=== PATIENT | male | born 1940 | race Caucasian/White ===

== ENCOUNTER 2016-11-30 07:26 | Day surgery (SDC) | payer MEDICARE ==
[2016-11-30] MEDS ORDERED: VERSED 5 MG/5 ML IV ONE (08:00)
[2016-11-30] MEDS ORDERED: DEMEROL 50 MG IJ ONE (08:00)
[2016-11-30] MEDS ORDERED: Sodium Chloride 0.9% 1000 ML 1,000 ML IV SCH (08:30)
--- NOTE | 2016-11-30 11:33 | HP ---
DATE: 12/01/15 ADMISSION DIAGNOSIS: 1. 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 ANTICIPATED PROCEDURE: 1. Colonoscopy. PAST MEDICAL HISTORY: ALLERGIES: NONE. CURRENT MEDICATIONS: Zyloprim, Norvasc, Benicar. SURGERIES: Cataracts, left elbow and wrist, low anterior resection. SOCIAL HISTORY: Negative. FAMILY HISTORY: Negative. REVIEW OF SYSTEMS: Hypertension. PHYSICAL EXAMINATION: Vital signs normal. CHEST: Clear. COR: Regular. ABDOMEN: Satisfactory. IMPRESSION: 1. FOLLOW-UP OF LOW ANTERIOR RESECTION VERY LARGE SESSILE ATYPICAL POLYP. PLAN: Colonoscopy.
[2016-11-30 12:33] VITALS: BP 133/75; PULSE 55; O2SAT 93
--- NOTE | 2016-11-30 13:22 | OP ---
SURGERY DATE/TIME: 11/30/2016 1006 PREOPERATIVE DIAGNOSIS: Follow up for polyps. POSTOPERATIVE DIAGNOSIS: At least six rectal polyps. PROCEDURES 1) Colonoscopy complete to cecum. 2) Hot polypectomy of six rectal polyps submitted in one container. SURGEON: Chucho Osorio M.D. ANESTHESIA: IV sedation. COMPLICATIONS: None. CONDITION: Stable. INDICATION: A 76 year old requiring evaluation. He had low anterior for a very large villous adenoma. He subsequently presents for polyp control. DESCRIPTION OF PROCEDURE: He was taken to the endoscopy suite. Left lateral decubitus position. After suitable sedation. The scope advanced to the cecum. The base of the cecum, ileocecal valve, ascending, hepatic, transverse, splenic, descending satisfactory. Residual sigmoid satisfactory. Below the anastomosis in the rectum at least six rectal polyps were taken with hot forceps. PLAN: We will check one more time in one year. I suspect he can move out to three years at that time but he certainly had generous rectal polyps.
== END 2016-11-30 12:10 | disposition home or self-care (01) ==
LOC: SDC 07:26
PROVIDERS: ATTEND Surgery
PROC: 0DBP8ZX Excision of Rectum, Via Natural or Artificial Opening Endoscopic, Diagnostic (ICD-10-PCS; principal; 2016-11-30)
DX: K62.1 Rectal polyp (principal); Z90.49 Acquired absence of other specified parts of digestive tract; I10 Essential (primary) hypertension
CPT/HCPCS: 36415; 88305; J2175; J2250; L0625

== ENCOUNTER 2019-04-08 12:14 | Emergency (ER) | payer MEDICARE, OTHER ==
[2019-04-08] MEDS ORDERED: TORAdol 30 mg Injection IV ONE (12:42)
[2019-04-08] MEDS ORDERED: Zofran 4 MG/2 ML VIAL IV ONE (12:42)
[2019-04-08] MEDS ORDERED: Sodium Chloride 0.9% 1000 ML 1,000 ML IV STA (12:42)
--- NOTE | 2019-04-08 13:00 | ERPHSYRPT ---
- History of Present Illness Time Seen by Provider: 04/08/19 12:45 Source: patient Exam Limitations: no limitations Patient Subjective Stated Complaint: Pt began having blood in the urine about 4 days ago, N&V (dry heaves), pain in left quadrants of abdomen Triage Nursing Assessment: Pt presents to the ER with pain in his left sided quadrants, denies radiation, denies flank pain, bowel sounds heard in all 4 quadrants, hypertensive, pulses normal, rates pain 5/10, dry heaves, last intake last night Physician History: Left LQ pain started today; 4 or 5 days blood in urine. No history of kidney stones, urinary tract infections or prostate problems. Had prior colon resection; otherwise in good health. No fever, chills. Had nausea this morning. Allergies/Adverse Reactions: No Known Drug Allergies Allergy (Verified 04/08/19 12:29) Home Medications: Allopurinol 100 mg [Zyloprim 100 mg] 100 mg PO DAILY 03/11/15 [History] Amlodipine Besylate 10 mg [Norvasc 10 MG] 10 mg PO DAILY 03/11/15 [History] Olmesartan Medoxomil [Benicar] 40 mg PO DAILY 03/11/15 [History] Docusate Sodium [Colace] 100 mg PO DAILY 11/30/16 [History] Hx Influenza Vaccination/Date Given: Yes (2013) Hx Pneumococcal Vaccination/Date Given: No - Past Medical History Pertinent Past Medical History: Yes Neurological History: No Pertinent History ENT History: Cataracts Cardiac History: Hypertension Respiratory History: No Pertinent History Endocrine Medical History: No Pertinent History Musculoskeletal History: Fractures GI Medical History: No Pertinent History, Other History: No Pertinent History Psycho-Social History: No Pertinent History Male Reproductive Disorders: No Pertinent History Other Medical History: Gout , tubular followup from colon resection in apr. - Past Surgical History Past Surgical History: Yes Neuro Surgical History: No Pertinent History Cardiac: No Pertinent History Respiratory: No Pertinent History Gastrointestinal: No Pertinent History, Colon Resection Genitourinary: No Pertinent History Musculoskeletal: Orthopedic Surgery Male Surgical History: No Pertinent History Other Surgical History: bilateral cataracts. left arm fx repair as child. nerves rerouted - Social History Smoking Status: Never smoker Exposure to second hand smoke: No Drug Use: none Patient Lives Alone: No - Review of Systems Constitutional: No Symptoms Respiratory: No Symptoms Cardiac: No Symptoms Genitourinary Symptoms: Hematuria (karen blood) All Other Systems: Reviewed and Negative - Nursing Vital Signs Nursing Vital Signs: Initial Vital Signs Temperature 97.8 F 04/08/19 12:19 Pulse Rate 61 04/08/19 12:19 Blood Pressure 165/78 04/08/19 12:19 O2 Sat by Pulse Oximetry 94 L 04/08/19 12:19 Pain Scale Pain Intensity 0 - Physical Exam General Appearance: no apparent distress Eye Exam: PERRL/EOMI Ears, Nose, Throat Exam: normal ENT inspection, pharynx normal Neck Exam: normal inspection, full range of motion Respiratory Exam: normal breath sounds, lungs clear Cardiovascular Exam: regular rate/rhythm, normal heart sounds, normal peripheral pulses Gastrointestinal/Abdomen Exam: soft, normal bowel sounds, No tenderness, No distention Extremity Exam: normal inspection, normal range of motion SpO2 Interpretation: normal SpO2: 94 O2 Delivery: Room Air - Course Nursing assessment & vital signs reviewed: Yes - CT Exams Abdomen/Pelvis CT Interpretation: Other (mild hydronepohrosis L kidney; distended urinary bladder, enlarged prostate - R/O outlet obstruction.) Ordered Tests: Medication Summary Discontinued Medications Generic Name Dose Route Start Last Admin Trade Name Freq PRN Reason Stop Dose Admin Sodium Chloride 1,000 mls @ 999 mls/hr 04/08/19 12:42 04/08/19 14:32 Sodium Chloride 0.9% 1000 Ml IV 04/08/19 13:42 Infused .Q1H1M STA Infusion Sodium Chloride Confirm 04/08/19 13:18 Sodium Chloride 0.9% 1000 Ml Administered 04/08/19 13:19 Dose 1,000 mls @ ud .ROUTE .STK-MED ONE Ketorolac Tromethamine 15 mg 04/08/19 12:42 04/08/19 13:19 Toradol 30 Mg Injection IV 04/08/19 12:43 15 mg STAT ONE Administration Ketorolac Tromethamine Confirm 04/08/19 13:18 Toradol 30 Mg Injection Administered 04/08/19 13:19 Dose 30 mg .ROUTE .STK-MED ONE Ondansetron HCl 4 mg 04/08/19 12:42 04/08/19 13:19 Zofran 4 Mg/2 Ml Vial IV 04/08/19 12:43 4 mg STAT ONE Administration Ondansetron HCl Confirm 04/08/19 13:18 Zofran 4 Mg/2 Ml Vial Administered 04/08/19 13:19 Dose 4 mg .ROUTE .STK-MED ONE Lab/Rad Data: Laboratory Result Diagrams 04/08/19 12:57 04/08/19 12:57 Laboratory Results 04/08/19 04/08/19 04/08/19 Range/Units 16:55 12:57 12:57 WBC 9.8 (4.0-10.5) K/mm3 RBC 5.10 (4.1-5.6) M/mm3 Hgb 15.2 (12.5-18.0) gm/dl Hct 45.4 (42-50) % MCV 89.0 (78-100) fl MCH 29.8 (26-32) pg MCHC 33.5 (32-36) g/dl RDW 14.9 H (11.5-14.0) % Plt Count 146 L (150-450) K/mm3 MPV 10.4 H (6-9.5) fl Gran % 81.6 H (36.0-66.0) % Eos # (Auto) 0.06 (0-0.5) Absolute Lymphs (auto) 0.97 L (1.0-4.6) Absolute Monos (auto) 0.74 (0.0-1.3) Lymphocytes % 9.9 L (24.0-44.0) % Monocytes % 7.5 (0.0-12.0) % Eosinophils % 0.6 (0.00-5.0) % Basophils % 0.4 (0.0-0.4) % Absolute Granulocytes 8.02 H (1.4-6.9) Basophils # 0.04 (0-0.4) Sodium 143 (137-145) mmol/L Potassium 3.8 (3.5-5.1) mmol/L Chloride 109 H (98-107) mmol/L Carbon Dioxide 24 (22-30) mmol/L Anion Gap 13.5 (5-15) MEQ/L BUN 32 H (9-20) mg/dL Creatinine 1.53 H (0.66-1.25) mg/dL Estimated GFR 47.3 ML/MIN Glucose 126 H (74-106) mg/dL Calcium 9.4 (8.4-10.2) mg/dL Total Bilirubin 0.60 (0.2-1.3) mg/dL AST 22 (17-59) U/L ALT 15 (0-50) U/L Alkaline Phosphatase 85 (38-126) U/L Serum Total Protein 7.8 (6.3-8.2) g/dL Albumin 4.1 (3.5-5.0) g/dL Urine Color RED (YELLOW) Urine Appearance CLOUDY (CLEAR) Urine pH 6.0 (5-6) Ur Specific Dickens 1.012 (1.005-1.025) Urine Protein 100 (Negative) Urine Ketones NEGATIVE (NEGATIVE) Urine Blood MODERATE (0-5) Hakan/ul Urine Nitrite NEGATIVE (NEGATIVE) Urine Bilirubin NEGATIVE (NEGATIVE) Urine Urobilinogen NEGATIVE (0-1) mg/dL Ur Leukocyte Esterase NEGATIVE (NEGATIVE) Urine WBC (Auto) 6-10 (0-5) /HPF Urine RBC (Auto) >101 (0-2) /HPF U Epithel Cells (Auto) NONE (FEW) /HPF Urine Bacteria (Auto) PACKED (NEGATIVE) /HPF Urine Mucus (Auto) SLIGHT (NEGATIVE) /HPF Urine Culture Reflexed YES (NO) Urine Glucose 50 (NEGATIVE) mg/dL - Progress Progress: improved Progress Note: 04/08/19 17:16 Patient voided in ER - gross hematuria. Discussed with Dr. Gu/Urologist - call his office in the morning and will get worked in during the week. If he has urinary retention meanwhile - ER and will be admitted to Dr. Gu. - Departure Departure Disposition: Home Clinical Impression: Hematuria Qualifiers: Hematuria type: gross Qualified Code(s): R31.0 - Gross hematuria Condition: Stable Critical Care Time: No Referrals: TERESE GAYLE MD [Primary Care Provider] - Instructions: Blood in the Urine (Hematuria) in Adults Additional Instructions: Follow up with Dr. Gu, Urologist in [place]; call his office [phone]. They will work you in to be seen this week - be sure to tell them that Dr. Baum spoke to Dr. Gu. If you have urinary retention meanwhile, go to the ER - if it is at [facility] they will admit you for Dr. Gu.
[2019-04-08 13:05] LABS: BASOPHIL % 0.4 % (0.0-0.4); Basophil (Absolute #) 0.04 (0-0.4); Eosinophil % 0.6 % (0.00-5.0); Eosinophil (Absolute #) 0.06 (0-0.5); Granulocyte Absolute (ANC) 8.02 (1.4-6.9); Granulocytes % 81.6 % (36.0-66.0); Hematocrit 45.4 % (42-50); Hemoglobin 15.2 gm/dl (12.5-18.0); Lymphocyte (Absolute #) 0.97 (1.0-4.6); Lymphocytes % 9.9 % (24.0-44.0); Mean Corpuscular Hemoglobin 29.8 pg (26-32); Mean Corpuscular Hgb Concent. 33.5 g/dl (32-36); Mean Platelet Volume 10.4 fl (6-9.5); Monocyte (Absolute #) 0.74 (0.0-1.3); Monocytes % 7.5 % (0.0-12.0); Platelet Count 146 K/mm3 (150-450); Red Cell Distribution Width 14.9 % (11.5-14.0); White Blood Count 9.8 K/mm3 (4.0-10.5)
[2019-04-08 13:12] LABS: ALBUMIN 4.1 g/dL (3.5-5.0); ANION GAP 13.5 MEQ/L (5-15); BILIRUBIN,TOTAL 0.6 mg/dL (0.2-1.3); Calcium 9.4 mg/dL (8.4-10.2); Creatinine 1 1.53 mg/dL (0.66-1.25); Potassium 3.8 mmol/L (3.5-5.1); Total Protein 7.8 g/dL (6.3-8.2)
[2019-04-08] MEDS ORDERED: Sodium Chloride 0.9% 1000 ML 1,000 ML ONE (13:18)
[2019-04-08] MEDS ORDERED: Zofran 4 MG/2 ML VIAL ONE (13:18)
[2019-04-08] MEDS ORDERED: TORAdol 30 mg Injection ONE (13:18)
--- NOTE | 2019-04-08 16:39 | XRAY ---
Indication: Left abdomen pain. Hematuria. Multiple contiguous axial images obtained through the abdomen and pelvis without contrast as ordered. Comparison: None Lung bases are clear. Heart is not enlarged. Small hiatal hernia. Noncontrasted stomach and bowel loops appear nonobstructed. Previous appendectomy. Mild/moderate fecal debris in the ascending and transverse colon. Intact sigmoid anastomosis. No free fluid/air. Urinary bladder markedly distended. Enlarged prostate gland impresses on the base of the bladder. Left kidney demonstrates mild hydronephrosis with small perinephric fluid but no renal calculus or hydroureter. Indeterminant 1.2 cm left mid renal slightly dense lesion with calcification. Right kidney demonstrates 1.4 cm exophytic cyst. Remaining liver, gallbladder, pancreas, spleen, and adrenal glands appear unremarkable for noncontrast exam. Mild aortoiliac calcifications without AAA. Osseous structures intact with mild/moderate degenerative changes throughout the thoracolumbar spine. Impression: 1. Mildly hydronephrotic left kidney with perinephric fluid. Rule out UPJ obstruction. Also indeterminant 1.2 cm slightly dense cortical lesion with calcification. Renal mass not completely excluded on this noncontrast exam. Incidental small right renal cyst. 2. Markedly distended urinary bladder with enlarged prostate gland. Rule out outlet obstruction versus neurogenic bladder. 3. Mild fecal stasis without obstruction. 4. Small hiatal hernia. CTDI 22.35
[2019-04-08 17:05] LABS: Appearance CLOUDY (CLEAR); Bacteria PACKED /HPF (NEGATIVE); Bilirubin NEGATIVE (NEGATIVE); Blood MODERATE Ery/ul (0-5); Glucose 50 mg/dL (NEGATIVE); Ketones NEGATIVE (NEGATIVE); Leukocyte Esterase NEGATIVE (NEGATIVE); Mucus SLIGHT /HPF (NEGATIVE); Nitrite NEGATIVE (NEGATIVE); Protein,Urine Dip 100 (Negative); RBC >101 /HPF (0-2); Specific Gravity 1.012 (1.005-1.025); Urobilinogen NEGATIVE mg/dL (0-1)
[2019-04-08 17:18] VITALS: BP 149/87; PULSE 68
[2019-04-08 17:21] VITALS: O2SAT 94
== END 2019-04-08 17:34 | disposition home or self-care (01) ==
LOC: ED 12:14
DX: R31.0 Gross hematuria (principal)
CPT/HCPCS: 36000; 36415; 74176; 80053; 81001; 85025; 87086; 96360; 96374; 96375; 99284; J1885; J2405

== ENCOUNTER 2019-06-12 06:04 | Day surgery (SDC) | payer MEDICARE, OTHER ==
[2019-06-12] MEDS ORDERED: Lactated Ringers 1,000 ML IV ONE ×2 (06:14→11:07)
[2019-06-12] MEDS: Lactated Ringers 1,000 ML IV SCH (06:27)
--- NOTE | 2019-06-12 07:43 | HP ---
DATE OF SURGERY: 06/12/2019 ANTICIPATED PROCEDURE: Colonoscopy. HISTORY OF PRESENT ILLNESS: The patient has history of tubulovillous adenoma with low anterior resection, presents for colonoscopy. PAST MEDICAL HISTORY: ALLERGIES: NKDA. MEDICATIONS: Allopurinol, Norvasc. PAST SURGICAL HISTORY: Bilateral cataract. SOCIAL HISTORY: Negative. FAMILY HISTORY: Negative. REVIEW OF SYSTEMS: CVS: Hypertension. PULMONARY: Negative. GI: Negative. : Negative. PHYSICAL EXAMINATION: VITAL SIGNS: Normal. CHEST: Clear. COR: Regular. ABDOMEN: Satisfactory. IMPRESSION: A patient requiring colonoscopy and presents for such.
[2019-06-12] MEDS ORDERED: DIPRIVAN 200 MG/20 ML IV ONE (08:06)
[2019-06-12 11:18] VITALS: O2SAT 97
[2019-06-12 11:28] VITALS: BP 131/71; PULSE 55
--- NOTE | 2019-06-12 15:26 | OP ---
SURGERY DATE/TIME: 06/12/2019 1014 PREOPERATIVE DIAGNOSIS: Follow up major colon resection with low anterior anastomosis for atypical polyp. POSTOPERATIVE DIAGNOSIS: One polyp of the splenic flexure, three polyps in the rectum. PROCEDURE: Colonoscopy complete with hot polypectomy x4 submitted in two containers. ANTICIPATED FOLLOW UP: Three years. PREP: Excellent. WITHDRAWAL TIME: 6 minutes. SURGEON: Chucho Osorio M.D. ANESTHESIA: MAC. COMPLICATIONS: None. CONDITION: Stable. INDICATION: A patient requiring evaluation. DESCRIPTION OF PROCEDURE: Taken to endoscopy. Anal digital examination satisfactory. Scope introduced. Scope advanced to the cecum. Base of cecum, ileocecal valve and appendiceal orifice normal. Ascending, hepatic, transverse, splenic flexure 8 mm polyp was taken. The sigmoid was surgically absent. The descending colon satisfactory. The descending colon and rectal anastomosis there were three polyps in this area which were taken submitted in one container. The patient tolerated the procedure well. Prep score was excellent. He will get a reminder in three years.
== END 2019-06-12 11:40 | disposition home or self-care (01) ==
LOC: SDC 06:04
PROVIDERS: ATTEND Surgery
DX: Z12.11 Encounter for screening for malignant neoplasm of colon (principal); D12.3 Benign neoplasm of transverse colon; K62.1 Rectal polyp; Z86.010 Personal history of colon polyps; Z90.49 Acquired absence of other specified parts of digestive tract
CPT/HCPCS: 88305; 99100; J2704

== ENCOUNTER 2019-07-27 18:48 | Emergency (ER) | payer MEDICARE, OTHER ==
[2019-07-27 18:57] VITALS: BP 146/87; PULSE 77; O2SAT 97
[2019-07-27] MEDS ORDERED: Zofran 4 MG/2 ML VIAL IV ONE (19:31)
[2019-07-27] MEDS ORDERED: Sodium Chloride 0.9% 1000 ML 1,000 ML IV STA (19:31)
[2019-07-27] MEDS ORDERED: MORPHINE SULFATE 4 MG INJ IV ONE (19:31)
[2019-07-27] MEDS ORDERED: MORPHINE SULFATE 4 MG INJ ONE (20:15)
[2019-07-27] MEDS ORDERED: Zofran 4 MG/2 ML VIAL ONE (20:15)
[2019-07-27] MEDS ORDERED: Sodium Chloride 0.9% 1000 ML 1,000 ML ONE (20:15)
[2019-07-27 20:17] LABS: Absolute Neutrophil Ct (ANC) 5.39 (1.4-6.9); BASOPHIL % 0.4 % (0.0-0.4); Basophil (Absolute #) 0.03 (0-0.4); Eosinophil % 1.8 % (0.00-5.0); Eosinophil (Absolute #) 0.14 (0-0.5); Hematocrit 43.2 % (42-50); Hemoglobin 14.2 gm/dl (12.5-18.0); Lymphocyte (Absolute #) 1.31 (1.0-4.6); Lymphocytes % 16.4 % (24.0-44.0); Mean Cell Volume 86.7 fl (78-100); Mean Corpuscular Hemoglobin 28.5 pg (26-32); Mean Corpuscular Hgb Concent. 32.9 g/dl (32-36); Mean Platelet Volume 10.1 fl (6-9.5); Monocyte (Absolute #) 1.11 (0.0-1.3); Monocytes % 13.9 % (0.0-12.0); Neutrophil % 67.5 % (36.0-66.0); Platelet Count 208 K/mm3 (150-450); Red Blood Count 4.98 M/mm3 (4.1-5.6); Red Cell Distribution Width 14.1 % (11.5-14.0)
[2019-07-27 20:31] LABS: ALBUMIN 3.9 g/dL (3.5-5.0); ANION GAP 11.1 MEQ/L (5-15); BILIRUBIN,TOTAL 0.7 mg/dL (0.2-1.3); Calcium 9.3 mg/dL (8.4-10.2); Creatinine 1 1.49 mg/dL (0.66-1.25); Potassium 3.9 mmol/L (3.5-5.1); Total Protein 7.8 g/dL (6.3-8.2)
[2019-07-27] MEDS ORDERED: ROCEPHIN 1 Gm-D5w 50 ml Bag** 1 G/50 ML IVPB IV ONE (21:42)
--- NOTE | 2019-07-27 22:03 | ERPHSYRPT ---
- History of Present Illness Time Seen by Provider: 07/27/19 19:38 Historian: patient Exam Limitations: no limitations Patient Subjective Stated Complaint: pt states, "I am having abd pain. states, "he's quit eating and has lost alot of weight recently". Triage Nursing Assessment: pt c/o lt sided lower abd pain, which radiates to lt low back. Lt lower abd area is tender on palpation, no rebound tenderness. Pt' s states, "He's not had any appetite for the the last few weeks and has lots quite a bit of weight. Pt had prostate biospy 3 weeks ago and results were negative but pt hasn't bounced back since then. abd soft and round with active bs x4 quad, tender on palpation. lungs clear. Physician History: 79 yo presented with left side abd pain for 3 weeks with progreasive worsening associated with decreased oral intake and 15 ib weight loss. no fever . recently underwent prostate biopsy which cameback negative. does have h/o partial colectomy for enlarged begign polys. recent colonoscopy was negative. Timing/Duration: week(s) (3) Quality: aching, dullness Abdominal Pain Onset Location: LLQ, flank Pain Radiation: flank, back Severity of Pain-Max: moderate Severity of Pain-Current: moderate Modifying Factors: Improves With: nothing Associated Symptoms: back Previous symptoms: no prior history Allergies/Adverse Reactions: No Known Drug Allergies Allergy (Verified 06/12/19 06:16) Home Medications: Allopurinol 100 mg [Zyloprim 100 mg] 100 mg PO DAILY 03/11/15 [History] Amlodipine Besylate 10 mg [Norvasc 10 MG] 10 mg PO DAILY 03/11/15 [History] Olmesartan Medoxomil [Benicar] 40 mg PO DAILY 03/11/15 [History] Docusate Sodium [Stool Softener] 100 mg PO DAILY 06/04/19 [History] Polyethylene Glycol 3350 [Miralax] 119 gm PO DAILY 06/04/19 [History] Tamsulosin HCl 0.4 mg [Flomax 0.4 MG] 0.4 mg PO HS 06/04/19 [History] Hx Tetanus, Diphtheria Vaccination/Date Given: No Hx Influenza Vaccination/Date Given: Yes Hx Pneumococcal Vaccination/Date Given: No Immunizations Up to Date: No - Review of Systems Constitutional: Fatigue, Malaise Eyes: No Symptoms Ears, Nose, & Throat: No Symptoms Respiratory: No Symptoms Cardiac: No Symptoms Abdominal/Gastrointestinal: Abdominal Pain, Nausea, Appetite Changes Genitourinary Symptoms: No Symptoms, Dysuria Musculoskeletal: Back Pain Skin: No Symptoms Neurological: No Symptoms Psychological: No Symptoms Endocrine: No Symptoms Hematologic/Lymphatic: No Symptoms Immunological/Allergic: No Symptoms - Past Medical History Pertinent Past Medical History: Yes Neurological History: No Pertinent History ENT History: Cataracts Cardiac History: Hypertension Respiratory History: No Pertinent History Endocrine Medical History: No Pertinent History Musculoskeletal History: Fractures GI Medical History: No Pertinent History, Other History: No Pertinent History Psycho-Social History: No Pertinent History Male Reproductive Disorders: Other Other Medical History: Gout , follow up from colon resection in 2014, englarged prostate - Past Surgical History Past Surgical History: Yes Neuro Surgical History: No Pertinent History Cardiac: No Pertinent History Respiratory: No Pertinent History Gastrointestinal: Appendectomy, Colon Resection Genitourinary: No Pertinent History Musculoskeletal: Orthopedic Surgery Male Surgical History: Other Other Surgical History: bilateral cataracts. left arm fx repair as child. nerves rerouted. colonoscopy. prostate biopsy - Social History Smoking Status: Never smoker Exposure to second hand smoke: No Drug Use: none Patient Lives Alone: No - Nursing Vital Signs Nursing Vital Signs: Initial Vital Signs Temperature 97.4 F 07/27/19 18:55 Pulse Rate 77 07/27/19 18:55 Respiratory Rate 18 07/27/19 18:55 Blood Pressure 146/87 07/27/19 18:55 O2 Sat by Pulse Oximetry 97 07/27/19 18:55 Pain Scale Pain Intensity 7 - Physical Exam General Appearance: no apparent distress Eye Exam: eyes nml inspection Ears, Nose, Throat Exam: normal ENT inspection, pharynx normal Neck Exam: normal inspection, non-tender, supple Respiratory Exam: normal breath sounds, lungs clear Cardiovascular Exam: regular rate/rhythm, normal heart sounds, normal peripheral pulses Gastrointestinal/Abdomen Exam: soft, normal bowel sounds, tenderness, guarding ( left flank and LLQ), No distention Back Exam: normal inspection, CVA tenderness (LEFT) Extremity Exam: normal inspection, normal range of motion Neurologic Exam: alert, oriented x 3, cooperative Skin Exam: normal color, warm SpO2 Interpretation: normal SpO2: 97 O2 Delivery: Room Air - Course Nursing assessment & vital signs reviewed: Yes Ordered Tests: Active Orders 24 hr Category Date Time Status ABDOMEN AND PELVIS W/0 CONTRAS [CT] Stat Exams 07/27/19 19:32 Taken CBC W DIFF Stat Lab 07/27/19 20:14 Completed CMP Stat Lab 07/27/19 20:14 Completed LIPASE Stat Lab 07/27/19 20:14 Completed UA W/RFX UR CULTURE Stat Lab 07/27/19 19:31 Uncollected Medication Summary Generic Name Dose Route Start Last Admin Trade Name Freq PRN Reason Stop Dose Admin Ceftriaxone Sodium/Dextrose 1 g in 50 mls @ 100 mls/hr 07/28/19 10:00 21:48 Rocephin 1 Gm-D5w 50 Ml Bag IV 08/27/19 09:59 100 ml/hr Q24H10 SANTANA 100 mls/hr Administration Discontinued Medications Generic Name Dose Route Start Last Admin Trade Name Freq PRN Reason Stop Dose Admin Sodium Chloride 1,000 mls @ 999 mls/hr 07/27/19 19:31 07/27/19 20:22 Sodium Chloride 0.9% 1000 Ml IV 07/27/19 20:31 999 mls/hr .Q1H1M STA Administration Sodium Chloride Confirm 07/27/19 20:15 Sodium Chloride 0.9% 1000 Ml Administered 07/27/19 20:16 Dose 1,000 mls @ ud .ROUTE .STK-MED ONE Ceftriaxone Sodium/Dextrose Confirm 07/27/19 21:42 Rocephin 1 Gm-D5w 50 Ml Bag Administered 07/27/19 21:43 Dose 1 g in 50 mls @ ud IV .STK-MED ONE Morphine Sulfate 4 mg 07/27/19 19:31 07/27/19 20:23 Morphine Sulfate 4 Mg Inj IV 07/27/19 19:32 4 mg STAT ONE Administration Morphine Sulfate Confirm 07/27/19 20:15 Morphine Sulfate 4 Mg Inj Administered 07/27/19 20:16 Dose 4 mg .ROUTE .STK-MED ONE Ondansetron HCl 4 mg 07/27/19 19:31 07/27/19 20:22 Zofran 4 Mg/2 Ml Vial IV 07/27/19 19:32 4 mg STAT ONE Administration Ondansetron HCl Confirm 07/27/19 20:15 Zofran 4 Mg/2 Ml Vial Administered 07/27/19 20:16 Dose 4 mg .ROUTE .STK-MED ONE Lab/Rad Data: Laboratory Result Diagrams 07/27/19 20:14 07/27/19 20:14 Laboratory Results 07/27/19 07/27/19 Range/Units 20:14 20:14 WBC 8.0 (4.0-10.5) K/mm3 RBC 4.98 (4.1-5.6) M/mm3 Hgb 14.2 (12.5-18.0) gm/dl Hct 43.2 (42-50) % MCV 86.7 (78-100) fl MCH 28.5 (26-32) pg MCHC 32.9 (32-36) g/dl RDW 14.1 H (11.5-14.0) % Plt Count 208 (150-450) K/mm3 MPV 10.1 H (6-9.5) fl Gran % 67.5 H (36.0-66.0) % Eos # (Auto) 0.14 (0-0.5) Absolute Lymphs (auto) 1.31 (1.0-4.6) Absolute Monos (auto) 1.11 (0.0-1.3) Lymphocytes % 16.4 L (24.0-44.0) % Monocytes % 13.9 H (0.0-12.0) % Eosinophils % 1.8 (0.00-5.0) % Basophils % 0.4 (0.0-0.4) % Absolute Granulocytes 5.39 (1.4-6.9) Basophils # 0.03 (0-0.4) Sodium 138 (137-145) mmol/L Potassium 3.9 (3.5-5.1) mmol/L Chloride 102 (98-107) mmol/L Carbon Dioxide 28 (22-30) mmol/L Anion Gap 11.1 (5-15) MEQ/L BUN 25 H (9-20) mg/dL Creatinine 1.49 H (0.66-1.25) mg/dL Estimated GFR 48.6 ML/MIN Glucose 100 (74-106) mg/dL Calcium 9.3 (8.4-10.2) mg/dL Total Bilirubin 0.70 (0.2-1.3) mg/dL AST 29 (17-59) U/L ALT 15 (0-50) U/L Alkaline Phosphatase 87 (38-126) U/L Serum Total Protein 7.8 (6.3-8.2) g/dL Albumin 3.9 (3.5-5.0) g/dL Lipase 174 (23-300) U/L - Progress Progress: re-examined Progress Note: 07/27/19 22:03 HE IS GIVEN FLUIDS / PAIN MEDS , PAIN IS BETTER ON RE EVALUATION. NORMAL WHITE COUNT , RENAL FUNCTIONS AR BASELINE, . CT ABD/PELVIS NON CON SHOWED RETROPERITONEAL LYMPHADENOPATHY AND NO OBVIOUS PRIMARY AND COULD BE LYMPHOMA OR METASTATIS. ALSO HAS LEFT PERINEPHRIC EDEMA COULD BE PYELONEPHRITIS . STARTED ON ROCEPHIN. D/W DR. MANSFIELD , PATIENT WOULD BE TRANSFERRED TO HIGHER LEVEL OF CARE WITH MORE SPECIALITY CONVERAGE. PLAN D/W PATIENT AN DFAMILY WHICH THEY UNDERSTAND AND AGREE. 07/27/19 22:20 D/W [facility] AND PATIENT IS ACCEPTED FOR TRANSFER Discussed with .: Anjel Will see patient in: other Counseled pt/family regarding: lab results, diagnosis, rad results - Departure Departure Disposition: Home, Transfer Clinical Impression: Acute pyelonephritis, Retroperitoneal lymphadenopathy Condition: Stable Critical Care Time: No Referrals: MACHO LUTZ [Primary Care Provider] -
--- NOTE | 2019-07-28 08:57 | XRAY ---
Indication: Left lower abdomen pain. Decreased appetite and weight loss. Multiple contiguous axial images obtained through the abdomen and pelvis without contrast as ordered. Comparison: April 08, 2019. Lung bases demonstrates minimal fibrosis/scarring. No infiltrate or effusion. Heart is not enlarged. Noncontrasted stomach and bowel loops appear nonobstructed. Previous appendectomy. Again mild scattered fecal debris predominantly in the ascending and transverse colon. Intact sigmoid anastomosis. Left kidney demonstrates moderate hydronephrosis with perinephric stranding/fluid more than before. Again no distal renal calculus or hydroureter. Stable left mid renal indeterminant mass with punctate calcification and small exophytic right renal cyst. Urinary bladder is moderately distended again with enlarged prostate gland impressing on the base of the bladder. New retroperitoneal matted lymphadenopathy, largest on the left just inferior to the left renal vessels measuring 2.8 x 3.5 cm. Remaining liver, gallbladder, pancreas, spleen, and adrenal glands appear unremarkable for noncontrast exam. Stable mild aortoiliac calcifications without AAA. Osseous structures again demonstrates a degenerative changes throughout the thoracolumbar spine. Impression: 1. New retroperitoneal lymphadenopathy worrisome for primary versus metastatic malignancy. 2. Worsening left renal hydronephrosis with perinephric stranding/fluid. No distal calculus. Stable left renal indeterminant mass, right renal cyst, and enlarged prostate gland. Comment: Preliminary interpretation was made by [facility]. No critical discrepancy. CT DI 10.16
[2019-07-28] MEDS ORDERED: ROCEPHIN 1 Gm-D5w 50 ml Bag** 1 G/50 ML IVPB IV SCH (10:00)
== END 2019-07-27 22:40 | disposition short-term general hospital (02) ==
LOC: ED 18:48
DX: N10 Acute pyelonephritis (principal); R59.1 Generalized enlarged lymph nodes
CPT/HCPCS: 36415; 74176; 80053; 83690; 85025; 96365; 96374; 96375; 99285; J0696; J2270; J2405

== ENCOUNTER 2019-07-31 14:34 | Inpatient (IN) | payer MEDICARE, OTHER ==
[2019-07-31] MEDS ORDERED: Zofran 4 MG/2 ML VIAL IV PRN (15:17)
[2019-07-31] MEDS ORDERED: MORPHINE SULFATE 2 MG INJ IV PRN (15:19)
[2019-07-31] MEDS ORDERED: Sodium Chloride 0.9% 1000 ML 1,000 ML IV SCH (15:30)
[2019-07-31 15:35] LABS: Hematocrit 43.5 % (42-50); Hemoglobin 14.5 gm/dl (12.5-18.0); Mean Corpuscular Hemoglobin 28.3 pg (26-32); Mean Corpuscular Hgb Concent. 33.3 g/dl (32-36); Mean Platelet Volume 10.2 fl (6-9.5); Platelet Count 255 K/mm3 (150-450); Red Blood Count 5.12 M/mm3 (4.1-5.6); Red Cell Distribution Width 14.1 % (11.5-14.0); White Blood Count 9.6 K/mm3 (4.0-10.5)
[2019-07-31 16:10] LABS: Erythrocyte Sedimentation Rate 65 mm/hr (0-15)
[2019-07-31 16:23] LABS: ANION GAP 16.4 MEQ/L (5-15); BILIRUBIN,TOTAL 0.8 mg/dL (0.2-1.3); Calcium 9.8 mg/dL (8.4-10.2); Creatinine 1 1.37 mg/dL (0.66-1.25); MAGNESIUM 1.9 mg/dL (1.6-2.3); Potassium 3.8 mmol/L (3.5-5.1); Prostate Specific Ag,Screen 13.7 ng/mL (0-4); TSH, 3RD Generation 2.8 mIU/L (0.47-4.68); Total Protein 8.2 g/dL (6.3-8.2)
--- NOTE | 2019-07-31 16:45 | XRAY ---
Indication: Nausea, vomiting, and dehydration. Multiple contiguous axial images obtained through the chest using 80 cc SUV 370 contrast. Comparison: None Lungs are inflated with minimal lingula and left base fibrosis/scarring. Tiny nonspecific left effusion. No suspicious pulmonary mass, nodule, or infiltrate. Heart is not enlarged. Aorta is minimally arteriosclerotic without aneurysm/dissection. No pathologic mediastinal/hilar lymphadenopathy. Small hiatal hernia. Bony thorax intact with minimal degenerative changes throughout the spine. CT abdomen reported separately. Impression: 1. Left base fibrosis/scarring, tiny left effusion, and small hiatal hernia. 2. Remaining CT chest with contrast exam is negative. CTDI 10.91
--- NOTE | 2019-07-31 17:06 | XRAY ---
Indication: Nausea, vomiting, and dehydration. Multiple contiguous axial images obtained through the abdomen and pelvis using 80 cc of Isovue-370 contrast only. Comparison: July 27, 2019. CT chest reported separately. Noncontrasted stomach and bowel loops remain nonobstructed with reported appendectomy. Stable mild scattered colonic fecal debris throughout with intact sigmoid anastomosis. Stable mild hydronephrotic left kidney with moderate perinephric stranding/fluid. Left kidney demonstrates delayed enhancement with no excretion. Again no left ureter calculus or hydroureter. Left mid renal indeterminate mass with punctate calcification appears to be a 2.7 cm cyst. Smaller 1 cm lower pole cortical cyst. The right kidney demonstrates normal enhancement/excretion with 1 m upper pole cyst. Stable enlarged prostate gland impressing on the base of the urinary bladder. Also stable retroperitoneal matted lymphadenopathy again largest just inferior to the left renal vessels. Remaining liver, gallbladder, pancreas, spleen, adrenal glands, and urinary bladder appear unremarkable. Impression: 1. Stable retroperitoneal lymphadenopathy. Again rule out primary versus metastatic malignancy. 2. Stable edematous left kidney with mild hydronephrosis and perinephric stranding/fluid. Previous indeterminate mass appears to be a cyst with punctate calcification. Delayed renal enhancement and no excretion on delayed imaging is worrisome and still concerning for obstructive uropathy. Cystoscopy with retrograde pyelogram may yield further information. 3. Stable tiny right renal cyst, enlarged prostate gland, and mild fecal stasis. CTDI 9.29
[2019-07-31] MEDS: PROTONIX 40 MG IV IV SCH (17:15)
[2019-07-31] MEDS: Sodium Chloride 0.9% 1000 ML 1,000 ML IV SCH (17:17)
[2019-07-31 17:43] VITALS: O2SAT 96
[2019-07-31] MEDS: Zosyn 3.375GM/100 Ml D5W 3.375 GM/100 ML IVPB IV SCH (18:10)
[2019-07-31] MEDS: Flomax 0.4 MG PO SCH ×2 (18:43→22:27)
[2019-07-31] MEDS: Xalatan OP SCH ×2 (20:07→22:27)
[2019-07-31] MEDS: Senokot-S Tablet PO SCH ×2 (20:07→22:27)
[2019-07-31 21:34] LABS: Appearance SLIGHTLY CLOUDY (CLEAR); Bacteria FEW /HPF (NEGATIVE); Bilirubin NEGATIVE (NEGATIVE); Blood LARGE Ery/ul (0-5); Glucose NEGATIVE (NEGATIVE); Ketones SMALL (NEGATIVE); Leukocyte Esterase NEGATIVE (NEGATIVE); Mucus SLIGHT /HPF (NEGATIVE); Nitrite NEGATIVE (NEGATIVE); Protein,Urine Dip 100 (Negative); RBC 26-50 /HPF (0-2); Specific Gravity 1.056 (1.005-1.025); Urobilinogen NEGATIVE mg/dL (0-1)
[2019-07-31] MEDS: Pepcid 20 MG VIAL IV SCH (22:27)
[2019-07-31] MEDS ORDERED: NORVASC 5 MG ONE (22:42)
[2019-08-01] MEDS: Zosyn 3.375GM/100 Ml D5W 3.375 GM/100 ML IVPB IV SCH ×2 (00:02→05:50)
[2019-08-01] MEDS: Sodium Chloride 0.9% 1000 ML 1,000 ML IV SCH ×2 (00:02→07:50)
[2019-08-01 04:46] LABS: Hematocrit 37.1 % (42-50); Hemoglobin 12.3 gm/dl (12.5-18.0); Mean Cell Volume 86.1 fl (78-100); Mean Corpuscular Hemoglobin 28.5 pg (26-32); Mean Corpuscular Hgb Concent. 33.2 g/dl (32-36); Mean Platelet Volume 9.7 fl (6-9.5); Platelet Count 189 K/mm3 (150-450); Red Blood Count 4.31 M/mm3 (4.1-5.6); Red Cell Distribution Width 13.9 % (11.5-14.0); White Blood Count 7.5 K/mm3 (4.0-10.5)
[2019-08-01 04:56] LABS: ALBUMIN 3.1 g/dL (3.5-5.0); ANION GAP 10.7 MEQ/L (5-15); BILIRUBIN,TOTAL 0.7 mg/dL (0.2-1.3); Calcium 8.5 mg/dL (8.4-10.2); Creatinine 1 1.34 mg/dL (0.66-1.25); Potassium 3.3 mmol/L (3.5-5.1); Total Protein 6.5 g/dL (6.3-8.2)
[2019-08-01 07:10] VITALS: BP 126/62; PULSE 69
[2019-08-01] MEDS: PROTONIX 40 MG IV IV SCH (09:44)
[2019-08-01] MEDS: Pepcid 20 MG VIAL IV SCH (09:44)
[2019-08-01] MEDS: Senokot-S Tablet PO SCH (09:46)
[2019-08-01] MEDS ORDERED: NORVASC 5 MG PO SCH (20:00)
[2019-08-02 06:14] LABS: HEPATITIS A IGM Non Reactive (Non Reactive); HEPATITIS B VIRUS CORE TOT AB Non Reactive (Non Reactive); HEPATITIS C VIRUS ANTIBODY Non Reactive (Non Reactive); Hepatitis B Surface Ab.Quant. <3.50 mIU/mL (0.00-8.49); Hepatitis B Surface Antigen Non Reactive (Non Reactive)
== END 2019-08-01 11:07 | disposition short-term general hospital (02) | DRG 392 ==
LOC: MED SURG 14:41
PROVIDERS: ADMIT Family Medicine; ATTEND Family Medicine
DX: R11.2 Nausea with vomiting, unspecified (principal); N13.30 Unspecified hydronephrosis; E86.0 Dehydration; R63.4 Abnormal weight loss; R10.9 Unspecified abdominal pain; Z79.899 Other long term (current) drug therapy; I10 Essential (primary) hypertension; E78.5 Hyperlipidemia, unspecified; C61 Malignant neoplasm of prostate
CPT/HCPCS: 36415; 71260; 74177; 80053; 80074; 81001; 82150; 82272; 83690; 83735; 84443; 85027; 85652; 87086; G0103; J2405; J2543; A9270-GY